=== PATIENT | female | born 1960 | race Caucasian/White ===

== ENCOUNTER → 2016-07-07 | Outpatient (CLI) | payer BC ==
[~2016-07-07] MED LIST: ACDPT PO; ASPI325T4 PO; BUPR300T51 PO; BUSP30TA2 PO; DENO60DI SQ; DICL75TA2 PO; DPH25C PO; EPIN0.3A IJ; FAMO20TA13 PO; FLUC100T6 PO; LEVO25TA5 PO; LISI5TAB14 PO; LSNP10T PO; PRED20TA PO
[2016-07-07 07:52] LABS: ALBUMIN 4.4 g/dL (3.4-5.0); ANION GAP 15.4 MEQ/L (3-15); TOTAL PROTEIN 7.7 g/dL (6.4-8.5)
== END ==
LOC: LAB 06:44
PROVIDERS: ATTEND Family Medicine
DX: R13.19 Other dysphagia (principal); E78.4 Other hyperlipidemia; I10 Essential (primary) hypertension; J35.8 Other chronic diseases of tonsils and adenoids
CPT/HCPCS: 36415; 80053; 80061; 84443